=== PATIENT | female | born 1990 | race Caucasian/White ===

== ENCOUNTER 2018-04-03 03:20 | Emergency (ER) | payer OTHER ==
[~2018-04-03] VITALS: Ht 147.3 cm; Wt 54.4 kg
[2018-04-03 03:25] VITALS: BP 109/68
--- NOTE | 2018-04-03 03:27 | NUR ---
TO BED # 7 AMBULATORY, REPORT GIVEN TO RODOLFO BALDWIN
[2018-04-03] MEDS ORDERED: PHENAZOPYRIDINE 100 MG TAB PO ONE (03:35)
--- NOTE | 2018-04-03 03:42 | NUR ---
PT C/O URINARY FREQUENCY STARTING LAST NIGHT. PT HAS LOWER ABD PAIN, ABD IS ROUND, SOFT, NON TENDER, ACTIVE BS X4. NO PMH, NKDA
[2018-04-03 04:03] VITALS: BP 110/68
--- NOTE | 2018-04-03 04:04 | NUR ---
Patient discharged with v/s stable. Written and verbal after care instructions given and explained. Patient alert, oriented and verbalized understanding of instructions. Ambulatory with steady gait. All questions addressed prior to discharge. ID band removed. Patient advised to follow up with PMD. Rx of CIPRO, PHENAZOPYRIDINE given. Patient educated on indication of medication including possible reaction and side effects. Opportunity to ask questions provided and answered.
== END 2018-04-03 04:04 | disposition home or self-care (01) ==
LOC: MED 03:20
DX: N39.0 Urinary tract infection, site not specified (principal)
CPT/HCPCS: 81002; 81025; 99283

== ENCOUNTER 2018-08-26 20:25 | Emergency (ER) | payer MEDICAID, OTHER ==
[~2018-08-26] VITALS: Ht 152.4 cm; Wt 56.7 kg
[2018-08-26 20:31] VITALS: BP 108/67
[2018-08-26 21:19] LABS: BASOPHILS # (AUTO) 0.1 K/uL (0.00-0.22); EOSINOPHILS # (AUTO) 0.1 K/uL (0-0.4); EOSINOPHILS % (AUTO) 0.9 % (0.0-4.0); HEMATOCRIT 33.9 % (36-48); HEMOGLOBIN 10.8 g/dL (12.0-16.0); LYMPHOCYTES # (AUTO) 1.8 K/uL (2.5-16.5); LYMPHOCYTES % (AUTO) 29.4 % (20.5-51.1); MEAN CORPUSCULAR HEMOGLOBIN 24 pg (27-31); MEAN CORPUSCULAR HGB CONC 32 g/dL (33-37); MEAN CORPUSCULAR VOLUME 76.3 fL (80-94); MONOCYTES # (AUTO) 0.4 K/uL (0.8-1.0); MONOCYTES % (AUTO) 5.9 % (1.7-9.3); NEUTROPHILS # (AUTO) 3.9 K/uL (1.8-7.7); NEUTROPHILS % (AUTO) 62.8 % (42.2-75.2); PLATELET COUNT (AUTO) 185 K/uL (140-450); RED BLOOD CELL COUNT(AUTO) 4.45 MIL/uL (4.20-5.40); RED CELL DISTRIBUTION WIDTH 16.2 % (11.6-13.7); WHITE BLOOD COUNT (AUTO) 6.2 K/uL (4.8-10.8)
[2018-08-26 21:28] LABS: APPEARANCE,URINE SLIGHTLY HAZY (CLEAR); COLOR,URINE YELLOW (YELLOW); UGLUCOSE NEGATIVE (NEGATIVE)
[2018-08-26 21:29] LABS: BILIRUBIN,URINE NEGATIVE (NEGATIVE); BLOOD, URINE 2+ (NEGATIVE); LEUKOCYTE ESTERASE ,URINE TRACE (NEGATIVE); NITRITE, URINE NEGATIVE (NEGATIVE)
[2018-08-26 21:37] LABS: ALBUMIN 3.8 g/dL (3.4-5.0); CARBON DIOXIDE 27.4 mmol/L (21-32); CREATININE 0.7 mg/dL (0.6-1.3); POTASSIUM 3.4 mmol/L (3.5-5.1); TOTAL BILIRUBIN 0.2 mg/dL (0.0-1.0)
[2018-08-26 21:42] LABS: RBC,URINE 11-20 (MOD) /HPF (0-5)
[2018-08-26] MEDS ORDERED: CIPROFLOXACIN 250 MG TAB PO ONE (21:45)
[2018-08-26 22:30] VITALS: BP 108/67
== END 2018-08-26 22:30 | disposition home or self-care (01) ==
LOC: MED 20:25
DX: N39.0 Urinary tract infection, site not specified (principal); K59.00 Constipation, unspecified
CPT/HCPCS: 36415; 80053; 81001; 81025; 84702; 85025; 87086; 87186; 99285

== ENCOUNTER 2019-04-29 16:29 | Emergency (ER) | payer SELFPAY ==
[~2019-04-29] VITALS: Ht 144.8 cm; Wt 55.8 kg
[2019-04-29 16:35] VITALS: BP 122/80
[2019-04-29] MEDS ORDERED: NACL 0.9% 2,000 ML IV SCH (16:51)
[2019-04-29] MEDS ORDERED: NACL 0.9% 1,000 ML IV ONE (16:51)
[2019-04-29] MEDS ORDERED: ONDANSETRON 4 MG/2 ML VIAL IVP ONE (16:55)
[2019-04-29 17:11] LABS: BASOPHILS % (AUTO) 0.8 % (0.0-2.0); EOSINOPHILS % (AUTO) 0.6 % (0.0-4.0); HEMATOCRIT 36.4 % (36-48); HEMOGLOBIN 11.5 g/dL (12.0-16.0); LYMPHOCYTES # (AUTO) 1.8 K/uL (2.5-16.5); LYMPHOCYTES % (AUTO) 30.8 % (20.5-51.1); MEAN CORPUSCULAR HEMOGLOBIN 24 pg (27-31); MEAN CORPUSCULAR HGB CONC 32 g/dL (33-37); MEAN CORPUSCULAR VOLUME 75.4 fL (80-94); MONOCYTES # (AUTO) 0.5 K/uL (0.8-1.0); MONOCYTES % (AUTO) 9.1 % (1.7-9.3); NEUTROPHILS # (AUTO) 3.4 K/uL (1.8-7.7); NEUTROPHILS % (AUTO) 58.7 % (42.2-75.2); PLATELET COUNT (AUTO) 217 K/uL (140-450); RED BLOOD CELL COUNT(AUTO) 4.83 MIL/uL (4.20-5.40); WHITE BLOOD COUNT (AUTO) 5.8 K/uL (4.8-10.8)
[2019-04-29 17:12] LABS: APPEARANCE,URINE HAZY (CLEAR); BILIRUBIN,URINE NEGATIVE (NEGATIVE); BLOOD, URINE NEGATIVE (NEGATIVE); COLOR,URINE YELLOW (YELLOW); LEUKOCYTE ESTERASE ,URINE 3+ (NEGATIVE); NITRITE, URINE POSITIVE (NEGATIVE); UGLUCOSE NEGATIVE (NEGATIVE)
[2019-04-29 17:20] LABS: BARBITURATE, URINE NEG. ng/ml (NEG <=200); BENZODIAZEPINE, URINE NEG. ng/mL (NEG <=200); CANNABINOID, URINE NEG. ng/mL (NEG <=50); COCAINE, URINE NEG. ng/mL (NEG <=300); OPIATE, URINE NEG. ng/mL (NEG <=2000); PHENCYCLIDINE SCREEN,URINE NEG. ng/mL (NEG <=25)
--- NOTE | 2019-04-29 17:20 | NUR ---
C/O FEVER, SWOLLEN LIP AND HEADACHE 8/10 & THROBBING X 1 DAY. PT STATES HER LIPS WERE CHAPPED, AND PROGRESSIVELY STARTED SWELLING MORE. PT REPORTS FEVER OF 100.3. PT IS AFEBRILE AT THIS TIME. PT DENIES TAKING MEDICATION AT HOME FOR THE DISCOMFORT. HX: ENDOMETRIOSIS RX: NONE
[2019-04-29 17:21] LABS: RBC,URINE 0 /HPF (0-5); WBC,URINE 16-25 (MOD) /HPF (0-5)
[2019-04-29 17:30] LABS: ALBUMIN 4.1 g/dL (3.4-5.0); AMYLASE 53 U/L (25-115); ANION GAP 15.2 (8-16); ASPARTATE AMINOTRANSFERASE 15 U/L (15-37); CARBON DIOXIDE 25.4 mmol/L (21-32); CHLORIDE 105 mmol/L (98-107); CREATININE 0.6 mg/dL (0.6-1.3); GFR ARICAN-AMERICAN 153 mL/min (>90); GLUCOSE 89 mg/dL (74-106); LIPASE 186 U/L (73-393); POTASSIUM 3.6 mmol/L (3.5-5.1); SODIUM SERUM 142 mmol/L (136-145); TOTAL BILIRUBIN 0.4 mg/dL (0.0-1.0); UREA NITROGEN, BLOOD 5 mg/dL (7-18)
[2019-04-29 17:48] LABS: ACETONE, SERUM NEGATIVE (NEGATIVE)
[2019-04-29] MEDS ORDERED: LEVOFLOXACIN 500 MG TAB PO ONE (17:50)
[2019-04-29] MEDS ORDERED: cefTRIAXone 1,000 MG VIAL ONE (18:57)
--- NOTE | 2019-04-29 19:15 | NUR ---
IV removed, catheter intact and site benign. Applied folded 4x4 gauze and tape to stop bleeding.
[2019-04-29 19:17] VITALS: BP 121/74
--- NOTE | 2019-04-29 19:17 | NUR ---
Patient discharged with v/s stable. Written and verbal after care instructions given and explained. Patient alert, oriented and verbalized understanding of instructions. Ambulatory with steady gait. All questions addressed prior to discharge. ID band removed. Patient advised to follow up with PMD. Rx of fiorect, levaquin given. Patient educated on indication of medication including possible reaction and side effects. Opportunity to ask questions provided and answered.
--- NOTE | 2019-05-04 08:39 | NUR ---
Late entry. Confirmed by RN that Rocephin IVPB completed at 1920
== END 2019-04-29 19:17 | disposition home or self-care (01) ==
LOC: MED 16:29
DX: T67.3XXA Heat exhaustion, anhydrotic, initial encounter (principal); N39.0 Urinary tract infection, site not specified; E86.0 Dehydration; X30.XXXA Exposure to excessive natural heat, initial encounter; Y93.89 Activity, other specified; Y92.89 Other specified places as the place of occurrence of the external cause; Y99.8 Other external cause status
CPT/HCPCS: 36415; 80053; 80305; 81001; 81025; 82009; 82150; 83605; 83690; 83874; 85025; 87086; 96361; 96365; 96375; 99283; J0696; J2405; J7030

== ENCOUNTER 2019-08-31 21:57 | Emergency (ER) | payer SELFPAY ==
[~2019-08-31] VITALS: Ht 160 cm; Wt 54.4 kg
[2019-08-31 22:15] VITALS: BP 103/71
--- NOTE | 2019-08-31 22:25 | NUR ---
VSS. URINE CUP, EMESIS BAG PROVIDED. SENT TO [facility]
--- NOTE | 2019-08-31 22:28 | NUR ---
PT TAKEN TO RADIOLOGY FOR ULTRASOUND
--- NOTE | 2019-08-31 23:05 | NUR ---
PT AMBULATED TO BED 12
[2019-08-31 23:10] LABS: BASOPHILS % (AUTO) 0.6 % (0.0-2.0); EOSINOPHILS % (AUTO) 0.1 % (0.0-4.0); HEMATOCRIT 33.9 % (36-48); HEMOGLOBIN 10.8 g/dL (12.0-16.0); LYMPHOCYTES % (AUTO) 13.4 % (20.5-51.1); MEAN CORPUSCULAR HEMOGLOBIN 24 pg (27-31); MEAN CORPUSCULAR HGB CONC 32 g/dL (33-37); MEAN CORPUSCULAR VOLUME 76.2 fL (80-94); MONOCYTES # (AUTO) 0.3 K/uL (0.8-1.0); MONOCYTES % (AUTO) 4.2 % (1.7-9.3); NEUTROPHILS # (AUTO) 6.4 K/uL (1.8-7.7); NEUTROPHILS % (AUTO) 81.7 % (42.2-75.2); PLATELET COUNT (AUTO) 232 K/uL (140-450); RED BLOOD CELL COUNT(AUTO) 4.46 MIL/uL (4.20-5.40); RED CELL DISTRIBUTION WIDTH 16.8 % (11.6-13.7); WHITE BLOOD COUNT (AUTO) 7.8 K/uL (4.8-10.8)
--- NOTE | 2019-09-01 00:17 | NUR ---
PT AMBULATES TO RR WITH STEADY GAIT. URINE SAMPLE PROVIDED.
--- NOTE | 2019-09-01 00:17 | NUR ---
28 Y/O FEMALE PRESENTS TO ED WITH C/O BILAT SUPRAPUBIC ABD LOU X12 HRS. 9 WEEKS . LMP 07/29/19. NO VAGINAL BLEEDING OR DISCHARGE. NO CHANGE IN URINATION. ALSO C/O NAUSEA/VOMITING. ABD SOFT/NON-TENDER. LAST BM ON 08/31/19. DENIES BACK PAIN. VSS. ER MD AWARE. CONTINUE TO MONITOR.
[2019-09-01 00:27] LABS: APPEARANCE,URINE SL CLOUDY (CLEAR); BILIRUBIN,URINE NEGATIVE (NEGATIVE); BLOOD, URINE TRACE-L (NEGATIVE); COLOR,URINE YELLOW (YELLOW); LEUKOCYTE ESTERASE ,URINE NEGATIVE (NEGATIVE); NITRITE, URINE POSITIVE (NEGATIVE); PH,URINE 6.5 (5.0-9.0); UGLUCOSE NEGATIVE (NEGATIVE)
[2019-09-01 01:11] LABS: RBC,URINE 0-5 /HPF (0-5); WBC,URINE 0-5 /HPF (0-5)
--- NOTE | 2019-09-01 01:33 | NUR ---
DR. DUCKWORTH EVALUATING AT BEDSIDE.
[2019-09-01 02:10] VITALS: BP 98/56
--- NOTE | 2019-09-01 02:10 | NUR ---
Patient discharged with v/s stable. Written and verbal after care instructions given and explained. Patient verbalized understanding. Ambulatory with steady gait. All questions addressed prior to discharge. Advised to follow up with PMD. Addendum: 09/01/19 at 0234 by [facility] Rx for Macrobid given.
== END 2019-09-01 02:10 | disposition home or self-care (01) ==
LOC: MED 21:57
DX: O23.41 Unspecified infection of urinary tract in pregnancy, first trimester (principal); O20.0 Threatened abortion; Z3A.01 Less than 8 weeks gestation of pregnancy; Z98.890 Other specified postprocedural states
CPT/HCPCS: 36415; 76817; 81001; 81025; 84702; 85025; 87086; 99283

== ENCOUNTER 2019-10-20 16:49 | Emergency (ER) | payer SELFPAY ==
[~2019-10-20] VITALS: Ht 144.8 cm; Wt 59.0 kg
[2019-10-20 17:08] VITALS: BP 119/64
[2019-10-20] MEDS ORDERED: ACETAMINOPHEN EXTRA STRENGTH 500 MG TAB PO ONE (17:20)
--- NOTE | 2019-10-20 17:21 | NUR ---
HAND ON URINE CUP. WAIT AT LOBBY. Addendum: 10/20/19 at 1723 by [email or web address] FLU SWAB COLLECTED & SENT TO LAB.
--- NOTE | 2019-10-20 17:36 | NUR ---
PT TO BED 8 WITH STEADY GAIT
--- NOTE | 2019-10-20 17:37 | NUR ---
FLU SWAB COLLECTED BY KHAI BALDWIN UPON TRIAGE
--- NOTE | 2019-10-20 17:43 | NUR ---
TEMP 99.3 AT THIS TIME
--- NOTE | 2019-10-20 17:45 | NUR ---
C/O FEVER, HEADACHE 05/05, NON-PRODUCTIVE COUGH, AND N/V X YESTERDAY. PT NOT ACTIVELY VOMITING AT THIS TIME. ABDOMEN SOFT AND FLAT, NONTENDER TO TOUCH. PREG 14 WEEKS. [id number]. LMP 07/29/19. TEMP 100.9 AND P 132 UPON TRIAGE. PT ALERT AND AWAKE, AMBULATORY WITH STEADY GAIT MED HX:DENIES
--- NOTE | 2019-10-20 17:47 | NUR ---
PT PLACED ON PAN RECLAIM PROCESSOR, HR TACHYCARDIA
--- NOTE | 2019-10-20 17:48 | NUR ---
DR CABRAL AT BEDSIDE
--- NOTE | 2019-10-20 17:53 | NUR ---
PT UNABLE TO GIVE URINE AT THIS TIME
--- NOTE | 2019-10-20 18:03 | NUR ---
IV INSERTED, LABS DRAWN BEDSIDE, BOLUS STARTED FOR PTS BP Addendum: 10/20/19 at 1827 by [email or web address] ANTIVERT, ZOFRAN, PEPCID, AND LR BOLUS ADMINSITERED
[2019-10-20] MEDS ORDERED: MECLIZINE 25 MG TAB PO ONE (18:05)
[2019-10-20] MEDS ORDERED: FAMOTIDINE 20 MG/2 ML VIAL IVP ONE (18:05)
[2019-10-20] MEDS ORDERED: DEXT 5% / LACT RING 1,000 ML IV ONE (18:05)
[2019-10-20] MEDS ORDERED: ONDANSETRON 4 MG/2 ML VIAL IVP ONE (18:05)
--- NOTE | 2019-10-20 18:28 | NUR ---
ANTIVERT, ZOFRAN, PEPCID, AND LR BOLUS ADMINSITERED
--- NOTE | 2019-10-20 18:48 | NUR ---
NADR, PAIN 5/10, PT REPORTS LESS NAUSEA AT THIS TIME
--- NOTE | 2019-10-20 19:05 | NUR ---
REPOT GIVEN TO KATE RN, PT AMBULATING TO RESTROOM WITH STEADY GAIT
[2019-10-20 19:30] VITALS: BP 109/68
--- NOTE | 2019-10-20 19:30 | NUR ---
PT DISCHARGED WITH PAPERWORK. EDUCATED PT REGARDING MEDICATIONS AND D/C DIAGNOSIS. PT VERBALIZED UNDERSTANDING. TOLD PT TO FOLLOW UP WITH PCP AND WHEN TO RETURN TO ED. PT AT STABLE CONDITION. ALL QUESTIONS ANSWERED.
== END 2019-10-20 19:30 | disposition home or self-care (01) ==
LOC: MED 16:49
DX: O98.512 Other viral diseases complicating pregnancy, second trimester (principal); B34.9 Viral infection, unspecified; J10.1 Influenza due to other identified influenza virus with other respiratory manifestations; Z3A.15 15 weeks gestation of pregnancy
CPT/HCPCS: 87804; 96365; 96375; 99283; J2405; J3490; J8597

== ENCOUNTER 2021-01-29 05:10 | Emergency (ER) | payer OTHER ==
[~2021-01-29] VITALS: Ht 144.8 cm; Wt 56.7 kg
[2021-01-29 05:14] VITALS: BP 115/66
--- NOTE | 2021-01-29 05:14 | NUR ---
TO BED AMBULATORY
--- NOTE | 2021-01-29 05:22 | NUR ---
PT AMBULATED TO THE BATHROOM
--- NOTE | 2021-01-29 05:23 | NUR ---
30 Y/O FEMALE PRESENTS TO THE ED WITH C/O URINARY BURNING. PT STATES, "I THINK I HAVE A UTI." PT REPORTS BURNING, PAIN, DIFFICULTY STARTING STREAM, AND POLYURIA. PT REPORTS THE LAST UTI EPISODE WAS A LITTLE OVER A YEAR AGO. SYMPTOMS STARTED FRIDAY ACCORDING TO PT AND HAS TRIED SUPPLEMENTS TO RELIEVE UTI. PT DENIES ANY FEVER, CP, SOB, OR COUGH AT THIS TIME. PMH: UTI ALLERGIES: NKA
--- NOTE | 2021-01-29 05:38 | NUR ---
Dr. Patel examining patient.
[2021-01-29] MEDS ORDERED: CIPR500T4 PO (05:50)
[2021-01-29] MEDS ORDERED: PYR100 PO (05:50)
[2021-01-29 05:55] VITALS: BP 115/66
--- NOTE | 2021-01-29 05:55 | NUR ---
Patient discharged with v/s stable. Written and verbal after care instructions given and explained. Patient alert, oriented and verbalized understanding of instructions. Ambulatory with steady gait. All questions addressed prior to discharge. ID band removed. Patient advised to follow up with PMD. Rx of CIPRO AND PYRIDIUM given. Patient educated on indication of medication including possible reaction and side effects. Opportunity to ask questions provided and answered.
== END 2021-01-29 05:55 | disposition home or self-care (01) ==
LOC: MED 05:10
DX: N39.0 Urinary tract infection, site not specified (principal)
CPT/HCPCS: 81002; 81025; 99283

== ENCOUNTER 2024-05-25 21:26 | Emergency (ER) | payer OTHER ==
[~2024-05-25] VITALS: Ht 144.8 cm; Wt 65.8 kg
[~2024-05-25 21:26] MED LIST: CIPR500T4 PO; PYR100 PO
[2024-05-25 21:29] VITALS: BP 129/81; PULSE 99; RESP 22; TEMP 98; O2SAT 100
[2024-05-25] MEDS: ALBUTEROL 0.083% 2.5 MG/3 ML NEBU INH ONE (22:35)
[2024-05-25] MEDS ORDERED: TRAM50TA3 PO (23:02)
== END 2024-05-25 23:05 | disposition home or self-care (01) ==
LOC: MED 21:26
DX: K08.89 Other specified disorders of teeth and supporting structures (principal); K03.81 Cracked tooth; F41.9 Anxiety disorder, unspecified; Z79.899 Other long term (current) drug therapy
CPT/HCPCS: 94640; 99283; J7613

== ENCOUNTER 2024-06-12 17:27 | Emergency (ER) | payer OTHER ==
[~2024-06-12] VITALS: Ht 144.8 cm; Wt 54.4 kg
[~2024-06-12 17:27] MED LIST changes: +TRAM50TA3 PO
[2024-06-12 17:47] VITALS: BP 135/92; PULSE 80; RESP 20; TEMP 97.3; O2SAT 99
[2024-06-12] MEDS: KETOROLAC 30 MG/ML VIAL IM ONE (19:01)
[2024-06-12] MEDS ORDERED: IBUP-2213 PO (19:32)
[2024-06-12] MEDS ORDERED: DIPH25TA53 PO (19:32)
[2024-06-12 19:50] VITALS: BP 128/88; PULSE 74; RESP 16; TEMP 97.3; O2SAT 99
== END 2024-06-12 19:50 | disposition home or self-care (01) ==
LOC: MED 17:27
DX: S90.464A Insect bite (nonvenomous), right lesser toe(s), initial encounter (principal); Z79.899 Other long term (current) drug therapy; W57.XXXA Bitten or stung by nonvenomous insect and other nonvenomous arthropods, initial encounter; Y92.89 Other specified places as the place of occurrence of the external cause; Y93.89 Activity, other specified; Y99.8 Other external cause status
CPT/HCPCS: 73660; 96372; 99283; J1885; Q0163